=== PATIENT | female | born 1960 | race Hispanic/Latino ===

== ENCOUNTER 2018-01-10 12:38 | Emergency (ER) | payer BC ==
[~2018-01-10] VITALS: Ht 157.5 cm; Wt 64.5 kg
[2018-01-10] MEDS ORDERED: AUGMENTIN 875-1 EACH PO (13:03)
[2018-01-10 14:31] VITALS: BP 140/88
== END 2018-01-10 14:32 | disposition home or self-care (01) ==
LOC: FSED 12:38
DX: R50.9 Fever, unspecified (principal); R05 Cough; J06.9 Acute upper respiratory infection, unspecified
CPT/HCPCS: 71046; 99283